=== PATIENT | female | born 1955 | race Caucasian/White ===

== ENCOUNTER 2019-09-19 09:26 | Outpatient (CLI) | payer OTHER, SELFPAY ==
--- NOTE | ~2019-09-19 | MM_ITS ---
EXAMINATION: MM screening [facility] BI w yudi HISTORY: Screening TECHNIQUE: Craniocaudal and mediolateral oblique 3-D tomosynthesis images were obtained and synthetic 2-D images were generated. CAD analysis was submitted and interpreted. COMPARISON: Comparison to multiple prior studies sequentially, with oldest reviewed study dated 12/17. BREAST PARENCHYMAL COMPOSITION: There are scattered areas of fibroglandular density. FINDINGS: There is no evidence of suspicious mass, calcification, or architectural distortion to sugg est malignancy in either breast. There has been no suspicious interval change. IMPRESSION: 1. No mammographic evidence of malignancy. 2. Recommend routine screening mammography in one year. BI-RADS Category 1: Negative Reviewed, dictated and finalized at location A.
== END 2019-09-19 09:27 | disposition home or self-care (01) ==
LOC: ANHIMG 09:29
PROVIDERS: PCP Internal Medicine; Visit Provider Obstetrics & Gynecology
DX: Z12.31 Encounter for screening mammogram for malignant neoplasm of breast (principal)
CPT/HCPCS: 77063; 77067

== ENCOUNTER 2020-01-02 08:02 | Outpatient (CLI) | payer OTHER, SELFPAY ==
--- NOTE | ~2020-01-02 | NM_ITS ---
EXAMINATION: NM stress w perf spect multi DATE: 01/02/2020 11:04 INDICATION: Chest pain. TECHNIQUE: Rest images were obtained following intravenous administration of 10.8 mCi Tc99m tetrofosm in (Myoview). The patient performed an exercise activity. At peak exercise, 30.67 mCi Tc99m tetrofosm in (Myoview) was administered intravenously, and stress images were obtained. Data was reconstructed into short axis and horizontal and vertical long axis SPECT images. Gated SPECT images were also obta ined. COMPARISON: Myocardial perfusion imaging 10/22/2016 FINDINGS: There is no definite reversible or fixed perfusion abnormality to suggest ischemia or infar ction. There is no segmental wall motion abnormality. Left ventricular ejection fraction measures > 70%. IMPRESSION: 1. No definite ischemia or infarct. 2. Normal left ventricular ejection fraction measuring >70%. Reviewed, dictated and finalized at location A. 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
--- NOTE | 2020-01-02 09:21 | EST_ITS ---
Patient Info Name: Sheela Pedroza Age: 64 years : 1955 Gender: Female Ht: 60 in Wt: 200 lbs BSA: 2.01 m2 Exam Date: 01/02/2020 9:44 AM Exam Location: [facility] Stress Patient Status: Outpatient Admit Date: 01/02/2020 Staff Ordering Physician: aSm Gomez DO Attending Provider: Milly Moya ANP Exercise Technologist: Pio Ortega RDCS, RT Exam Type: CA stress test treadmill w NM Study Info A nuclear stress test was performed. Summary 1. Some chest pressure and squeezing in recovery noted. 2. Negative EKG portion of the stress test. 3. Mildly decreased exercise tolerance for age. 4. Mildly hypertensive blood pressure response to exercise. 5. Please see nuclear medicine report. Protocol: [facility] ECG Details Stage: REST Duration (min): 2 min : 4 sec Speed (mph): 0.0 Grade (%): 0 HR (bpm): 71 SBP (mmHg): 143 DBP (mmHg): 72 METS: --- Stage: REST Duration (min): 10 min : 43 sec Speed (mph): 0.0 Grade (%): 0 HR (bpm): 77 SBP (mmHg): 143 DBP (mmHg): 72 METS: --- Stage: STAGE 1 Duration (min): 1 min : 0 sec Speed (mph): 1.7 Grade (%): 10 HR (bpm): 108 SBP (mmHg): 143 DBP (mmHg): 72 METS: --- Stage: STAGE 1 Duration (min): 2 min : 0 sec Speed (mph): 1.7 Grade (%): 10 HR (bpm): 116 SBP (mmHg): 143 DBP (mmHg): 72 METS: --- Stage: STAGE 1 Duration (min): 3 min : 0 sec Speed (mph): 1.7 Grade (%): 10 HR (bpm): 121 SBP (mmHg): 172 DBP (mmHg): 82 METS: --- Stage: STAGE 2 Duration (min): 1 min : 0 sec Speed (mph): 2.5 Grade (%): 12 HR (bpm): 130 SBP (mmHg): 172 DBP (mmHg): 82 METS: --- Stage: STAGE 2 Duration (min): 2 min : 0 sec Speed (mph): 2.5 Grade (%): 12 HR (bpm): 146 SBP (mmHg): 188 DBP (mmHg): 81 METS: --- Stage: STAGE 2 Duration (min): 2 min : 16 sec Speed (mph): 2.5 Grade (%): 12 HR (bpm): 149 SBP (mmHg): 188 DBP (mmHg): 81 METS: --- Stage: RECOVERY Duration (min): 0 min : 43 sec Speed (mph): 0.0 Grade (%): 0 HR (bpm): 140 SBP (mmHg): 188 DBP (mmHg): 81 METS: --- Stage: RECOVERY Duration (min): 1 min : 43 sec Speed (mph): 0.0 Grade (%): 0 HR (bpm): 116 SBP (mmHg): 188 DBP (mmHg): 81 METS: --- Stage: RECOVERY Duration (min): 2 min : 43 sec Speed (mph): 0.0 Grade (%): 0 HR (bpm): 102 SBP (mmHg): 169 DBP (mmHg): 86 METS: --- Stage: RECOVERY Duration (min): 3 min : 43 sec Speed (mph): 0.0 Grade (%): 0 HR (bpm): 96 SBP (mmHg): 169 DBP (mmHg): 86 METS: --- Stage: RECOVERY Duration (min): 4 min : 43 sec Speed (mph): 0.0 Grade (%): 0 HR (bpm): 91 SBP (mmHg): 146 DBP (mmHg): 89 METS: --- Stage: RECOVERY Duration
== END 2020-01-02 08:03 | disposition home or self-care (01) ==
PROVIDERS: PCP Internal Medicine; Visit Provider Internal Medicine
DX: R07.89 Other chest pain (principal)
CPT/HCPCS: 78452; 93017; A9502

== ENCOUNTER 2021-07-01 08:48 | Outpatient (CLI) | payer MEDICARE, OTHER, SELFPAY ==
--- NOTE | ~2021-07-01 | MM_ITS ---
EXAMINATION: MM screening [facility] BI w yudi HISTORY: Screening mammogram TECHNIQUE: Craniocaudal and mediolateral oblique 3-D tomosynthesis images were obtained and synthetic 2-D images were generated. CAD analysis was submitted and interpreted. COMPARISON: 09/19/2019, 02/28/2018, 10/11/2016 BREAST PARENCHYMAL COMPOSITION: There are scattered areas of fibroglandular density. FINDINGS: There is a stable asymmetry in the left breast on the craniocaudal view, consistent with a benign finding. There is no suspicious mass, calcification, or architectural distortion to suggest ma lignancy in either breast. There has been no suspicious interval change. IMPRESSION: 1. No mammographic evidence of malignancy. 2. Recommend routine screening mammography in one year. BI-RADS Category 2: Benign finding(s). Reviewed, dictated and finalized at location A.
== END 2021-07-01 08:49 | disposition home or self-care (01) ==
LOC: ANHIMG 08:51
PROVIDERS: PCP Internal Medicine; Visit Provider Obstetrics & Gynecology
DX: Z12.31 Encounter for screening mammogram for malignant neoplasm of breast (principal)
CPT/HCPCS: 77063; 77067

== ENCOUNTER 2021-08-19 16:00 | Outpatient (CLI) | payer MEDICARE, OTHER, SELFPAY ==
--- NOTE | ~2021-08-19 | CT_ITS ---
EXAMINATION: CT brain wo con DATE: 08/19/2021 16:26 INDICATION: Daily headaches for 4 months TECHNIQUE: Computed tomography (CT) of the head was performed without intravenous contrast. The mA wa s adjusted according to patient size. Iterative reconstruction technique was employed. Exam dose: 60 5.33 mGy-cm total exam DLP. COMPARISON: None FINDINGS: No intracranial mass lesion or hemorrhage or cerebrovascular accident is detected. No midli ne shift or mass effect. Normal ventricular size. No subdural or epidural hematoma. Bilateral carotid siphon and supraclinoid internal carotid artery calcifications and left prominent v ertebral artery calcification. Prominent mucoperiosteal thickening of the right maxillary sinus. Suggestion of nasal antral window o n the right. Partial bilateral ethmoidectomies Nearly complete opacification of the right sphenoid sinus. The mastoid air cells are normally developed and aerated. No fracture or bone destruction of the cranial vault. IMPRESSION: Status post right nasal antral windows and bilateral ethmoidectomies Prominent mucosal periosteal thickening of the right maxillary sinus and nearly complete opacificatio n of the right sphenoid sinus Normally developed and aerated mastoid air cells Cerebral atherosclerosis; no other significant intracranial abnormality Reviewed, dictated and finalized at Location A. Reviewed, dictated and finalized at location A. IMPRESSION: Status post right nasal antral windows and bilateral ethmoidectomi es Prominent mucosal periosteal thickening of the right maxillary sinus and nearly complete opacification of the right sphenoid sinus Normally developed and aerated mastoid air cells Cerebral atherosclerosis; no other significant intracranial abnormality
== END 2021-08-19 16:01 | disposition home or self-care (01) ==
PROVIDERS: PCP Internal Medicine; Visit Provider Internal Medicine
DX: R51.9 Headache, unspecified (principal); I67.2 Cerebral atherosclerosis
CPT/HCPCS: 70450

== ENCOUNTER 2021-12-23 15:39 | Outpatient (CLI) | payer MEDICARE, OTHER, SELFPAY ==
[2021-12-23 17:23] LABS: Thyroid Stimulating Hormone 0.548 uIU/mL (0.465-4.680)
[2021-12-29 14:45] LABS: Thyroid Stimulating Immunoglob <89 % baseline (<140)
[2021-12-29 22:23] LABS: Triiodothyronine T3 Free 3.3 pg/mL (2.3-4.2)
== END 2021-12-23 15:40 | disposition home or self-care (01) ==
LOC: ANHWCLAB 15:41
PROVIDERS: PCP Internal Medicine; Visit Provider Internal Medicine Endocrinology, Diabetes & Metabolism
DX: Z78.0 Asymptomatic menopausal state (principal); E04.9 Nontoxic goiter, unspecified; E05.90 Thyrotoxicosis, unspecified without thyrotoxic crisis or storm
CPT/HCPCS: 36415; 84439; 84443; 84445; 84481

== ENCOUNTER 2022-01-21 09:35 | Outpatient (CLI) | payer MEDICARE, OTHER, SELFPAY ==
--- NOTE | ~2022-01-21 | DEXA_ITS ---
Bone Density Report Name: ADONAY PADILLA Age: 66 Sex: Female Ethnicity: White Date of : 1955 Indication: postmenopausal; screening for osteoporosis; hysterectomy; Referring Provider: CINTHIA MORA Study: Bone densitometry was performed. Exam Date: January 21, 2022 Accession number: [id number] Bone Density: Region BMD T-score Z-score Classification AP Spine(L1-L4) 0.840 -1.9 0.0 Osteopenia Femoral Neck (Left) 0.607 -2.2 -0.6 Osteopenia Total Hip (Left) 0.811 -1.1 0.2 Osteopenia Femoral Neck (Right) 0.607 -2.2 -0.6 Osteopenia Total Hip (Right) 0.831 -0.9 0.4 Normal Total Hip Mean 0.821 -1.0 0.3 Normal World Health Organization criteria for BMD impression classify patients as: Normal (T-score at or above -1.0), Osteopenia (T-score between -1.0 and -2.5), or Osteoporosis (T-score at or below -2.5). 10-year Fracture Risk(1): Major Osteoporotic Fracture 10% Hip Fracture 1.6% Reported Risk Factors: [place] (), Neck BMD=0.607, BMI=40.0 (1) FRAX(R) Version 3.08. Fracture probability calculated for an untreated patient. Fracture probability may be lower if the patient has received treatment. Clinical Information Provided by Patient: Has used the following medications: Calcium Has the following medical conditions: Hysterectomy Patient maximum height was 60 Menopause Age: 40 No regular weight bearing exercise Drinks caffeinated beverages Onset of menses at age 12 Number of children 2 Impression: The patient has low bone mass, based on the Left Femoral Neck T-score. The patient has an estimated ten-year risk of hip fracture of 1.6% and an estimated ten-year risk of major fracture of 10%, based on the WHO FRAX algorithm. Discussion: BONE DENSITY IS LOW AT ONE OR MORE SKELETAL SITES. This patient's lowest T-score is low at one or more skeletal sites. It meets the World Health Organization's (WHO) criteria for ?low bone mass? (T-score between -1.0 and -2.5). The patient's 10-year risk of fracture as calculated by FRAX is less than the threshold where pharmacological therapy is recommended by the National Osteoporosis Foundation (NOF). However, all treatment decisions require clinical judgment and consideration of individual patient factors, including patient preferences, comorbidities, previous drug use, risk factors not captured in the FRAX model (e.g., frailty, falls, vitamin D deficiency, increased bone turnover, interval significant decline in bone density) and possible under or overestimation of fracture risk by FRAX. The patient should follow a healthful lifestyle (good nutrition with adequate calcium and vitamin D, and appropriate weight-bearing exercise). Follow-Up: Consider repeating this study in 2 to 3 years to reassess this patient's status, or sooner if there i
== END 2022-01-21 09:36 | disposition home or self-care (01) ==
PROVIDERS: PCP Internal Medicine; Visit Provider Internal Medicine Endocrinology, Diabetes & Metabolism
DX: M85.89 Other specified disorders of bone density and structure, multiple sites (principal); N95.1 Menopausal and female climacteric states
CPT/HCPCS: 77080

== ENCOUNTER 2023-04-20 09:48 | Outpatient (CLI) | payer MEDICARE, OTHER, SELFPAY ==
--- NOTE | ~2023-04-20 | MM_ITS ---
EXAMINATION: MM screening [facility] BI w yudi HISTORY: Screening mammogram TECHNIQUE: Craniocaudal and mediolateral oblique 3-D tomosynthesis images were obtained and synthetic 2-D images were generated. CAD analysis was submitted and interpreted. COMPARISON: 07/01/2021, bilateral screening mammogram examinations BREAST PARENCHYMAL COMPOSITION: There are scattered areas of fibroglandular density. FINDINGS: There is no evidence of suspicious mass, calcification, or architectural distortion to sugg est malignancy in either breast. There has been no suspicious interval change. IMPRESSION: 1. No mammographic evidence of malignancy. 2. Recommend routine screening mammography in one year. BI-RADS Category 1: Negative Reviewed, dictated and finalized at location A. 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
== END 2023-04-20 09:49 | disposition home or self-care (01) ==
LOC: ANHIMG 09:50
PROVIDERS: PCP Internal Medicine; Visit Provider Obstetrics & Gynecology
DX: Z12.31 Encounter for screening mammogram for malignant neoplasm of breast (principal)
CPT/HCPCS: 77063; 77067

== ENCOUNTER 2024-06-25 08:26 | Outpatient (CLI) | payer OTHER, SELFPAY ==
--- NOTE | ~2024-06-25 | MM_ITS ---
EXAMINATION: MM screening edgar BI w yudi HISTORY: Screening mammogram TECHNIQUE: Craniocaudal and mediolateral oblique 3-D tomosynthesis images were obtained and synthetic 2-D images were generated. CAD analysis was submitted and interpreted. COMPARISON: 04/20/2023, 07/01/2021, 09/19/2019 BREAST PARENCHYMAL COMPOSITION:Not Dense. The breasts are almost entirely fatty FINDINGS: No suspicious mass, calcification, or architectural distortion are identified in either darrel ast to suggest malignancy. There has been no suspicious interval change. IMPRESSION: No mammographic evidence of malignancy. Recommend routine screening mammography in one year. BI-RADS Category 1: Negative Reviewed, dictated and finalized at location .
--- OUTSIDE RECORDS SUMMARY | 2024-06-25 08:35 | XMS_ITS | Clinical Summary ---
Author Organization [facility] Address [address] [place] [address] Care Team Providers Care Recreation Specialist Name Role Phone Basilio DE SOUZA MD, Jared Ann Unavailable [phone] Antoni Lozada MD Unavailable [phone] Quinn Solo NP Primary Care Provider [phone] Allergies No known active allergies Medications atorvastatin (LIPITOR) 20 mg tabletIndicat ions:hyperlip idemia Take 1 tablet (20 mg total) by mouth nightly 019 Active L. gasseri-B. bifidum-B longum (Naurex) 1.5 billion cell capsuleIndica tions:supplem ent Take 1 tablet by mouth every morning 020 Active diphenhydrAMI NE (BENADRYL) 25 mg capsule Take 1 tablet/capsule (25 mg total) by mouth every 8 (eight) hours as needed for allergies Active calcium phosphate trib/vit D3 (CITRACAL + D3, CALCIUM PHOS, ORAL) 010 Active ibuprofen (ADVIL,MOTRIN ) 800 mg tablet 024 Active amLODIPine (NORVASC) 5 mg tablet Take 1 tablet (5 mg total) by mouth daily 024 Active hydroCHLOROth iazide (HYDRODIURIL) 25 mg tablet Take 1 tablet (25 mg total) by mouth daily 024 Active semaglutide 0.25 mg or 0.5 mg (2 mg/3 mL) pen injector injection Inject 0.25 mg under the skin once a week 024 Active omeprazole (PriLOSEC) 20 mg capsule Take 1 capsule (20 mg total) by mouth daily 90 capsule 3 025 Active FLUoxetine (PROzac) 20 mg capsule TAKE 1 CAPSULE BY MOUTH EVERY DAY 90 capsule 1 025 Active Ozempic 2 mg/dose (8 mg/3 mL) pen injector injection INJECT 2 (TWO) MG SUBCUTANEOUSLY EVERY 7 DAYS 025 Active cyanocobalami n (Vitamin B-12) 1,000 mcg tablet 024 2024 Discontinued(T herapy completed) alpha lipoic acid 200 mg capsule Take by mouth 2024 Discontinued(T herapy completed) losartan (COZAAR) 25 mg tablet Take 1 tablet (25 mg total) by mouth daily 024 2024 Discontinued(A lternate therapy) FLUoxetine (PROzac) 20 mg capsule Take 1 capsule (20 mg total) by mouth daily 90 capsule 1 025 2024 Discontinued Active Problems Problem Noted Date Diagnosed Date Functional heartburn 03/04/2024 Gastroesophageal reflux disease without esophagi tis 03/22/2022 Assessment & Plan (06/16/2024 6:48 PM CDT): Previous work up include EGD from 04/2022 with normal esophagus and biopsies. HRM and pH study that showed normal findings. Possibly has functional heartburn related to visceral hypersensitivity. Tried nortriptyline 10 mg QHS for about 3 weeks had issues with loss of taste and numbness of tongue, also did not feel any relief of her heartburn. Since last visit was switched to fluoxetine with symptoms much better controlled Plan Continue fluoxetine and omeprazole Continue to follow antireflux lifestyle modfications Assessment & Plan (03/23/2023 9:34 PM [employer]IMAL [employer]): Constant throat clearing and globus sensation with or without eating. No weight loss. EGD from 04/2022 showed normal esophagus with normal esophageal biopsies. Since last visit had HRM and pH study that showed findings. Possibly has functional heartburn related to visceral hypersensitivity. Tried nortriptyline 10 mg QHS for about 3 weeks had issues with loss of taste and numbness of tongue, also did not feel any relief of her heartburn Plan Go back to omeprazole 20 mg daily Trial of baclofen 5mg TID to help reduce TLESR and decrease reflux episodes Continue to follow antireflux lifestyle modfications Assessment & Plan (09/14/2022 9:35 AM CDT): Constant throat clearing and acid regurgitation every day. Increase omeprazole to 40 mg twice a day with some relief initially but not anymore. Also has globus sensation with or without eating. No weight loss. EGD from 04/2022 showed normal esophagus with normal esophageal biopsies Plan HRM with 24 hour pH impedance study Continue omeprazole 40 mg daily Trial of nortriptyline 10 mg daily Assessment & Plan (03/22/2022 11:08 AM ANIMAL ATTEND[employer]S [employer] TRA[employer]ERS): Constant throat clearing and acid regurgitation every day, worsening over the past month. Not controlled. No relief with omeprazole 40 mg daily taken on an empty stomach in the morning. Has dysphagia associated with both solids and liquids. No weight loss. Remote EGD prior to gastric bypass surgery in 2011. Will evaluate further with EGD for signs of esophagitis and/or peptic stricture. hold PPI prior to procedure. History of Lenora-en-Y gastric bypass 03/22/2022 Epigastric pain 03/22/2022 Assessment & Plan (03/23/2023 9:30 PM [employer] ATT[employer] TRA[employer]): EGD from 04/2022 showed mild reactive gastropathy, negative H pylori. Since last visit had HRM and pH study that showed normal findings Occasional burning with sour stomach . Not associated with eating or bm Tried nortriptyline 10 mg QHS for about 3 weeks had issues with loss of taste and numbness of tongue, also did not feel any relief of her symptoms Takes omeprazole intermittently with relief Plan I suspect visceral hypersensitivity, possible function heartburn, TCA would be 1st line treatment however patient did not tolerate nor did she feel any relief after 3 weeks Go back to taking omeprazole 20 mg daily since it seems to help her symptoms Trial of baclofen 5 mg TID to help with reducing TLESR and reflux episodes Assessment & Plan (09/14/2022 9:36 AM CDT): EGD from 04/2022 showed mild reactive gastropathy, negative H pylori. Occasional burning but more often has an ache that is constant, takes sriram seltzer. Not associated with eating or bm. No constipation or diarrhea while taking daily stool softener. Plan Stop sriram seltzer Trial of nortriptyline 10 mg QHS for visceral hypersensitivity Assessment & Plan (03/22/2022 11:06 AM ANIMAL ATTEND[employer]S [employer] TRA[employer]ERS): New problem with unknown prognosis started about a month ago. Has remote history of Lenora-en-Y gastric bypass in 2011. We will schedule EGD for evaluation of possible peptic versus anastomotic ulcers. Colon cancer screening 03/22/2022 Assessment & Plan (06/16/2024 6:48 PM CDT): One diminutive tubular adenoma in the descending colon on colonoscopy 04/2022. No family history of colon cancer. We will repeat colonoscopy 04/2029 Assessment & Plan (03/04/2024 6:01 PM [employer] ATT[employer] TRA[employer]ERS): One diminutive tubular adenoma in the descending colon on colonoscopy 04/2022. No family history of colon cancer. We will repeat colonoscopy 04/2029 Assessment & Plan (03/23/2023 9:23 PM ANIMAL ATT[employer]S [employer] TRAINERS): One diminutive tubular adenoma in the descending colon on colonoscopy 04/2022. No family history of colon cancer. We will repeat colonoscopy in 7 years. Assessment & Plan (09/14/2022 8:12 AM CDT): One diminutive tubular adenoma in the descending colon on colonoscopy 04/2022. No family history of colon cancer. We will repeat colonoscopy in 7 years. Assessment & Plan (03/22/2022 11:02 AM [employer]IMAL ATT[employer]S [employer] TRA[employer]ERS): Normal colonoscopy 10 years ago per patient no reported here for review. No family history of colon cancer. We will schedule colonoscopy for screening Esophageal dysphagia 03/22/2022 Assessment & Plan (09/14/2022 9:34 AM CDT): New issue unknown etiology. Feels like lump in throat associated with some pain slowly going down esophagus, happens with or without eating. No weight loss. EGD from 04/2022 showed no endoscopic abnormalities to explain her dysphagia. Esophageal biopsies were normal. Has drainage at night that she spits up throughout the night. No coughing or choking with eating. Has sour taste in mouth associated with burning in stomach occasionally as well. Takes omeprazole 40 mg twice daily, helped initially but not as much as before. Plan We will schedule high-resolution manometry with pH impedance to check for any kind of motility disorder, nonerosive reflux disease and/or functional heartburn Continue omeprazole 40 mg daily Trial of nortriptyline 10 mg q.h.s. Assessment & Plan (03/22/2022 11:09 AM ANIMAL ATT[employer]S [employer] TRA[employer]ERS): New issue unknown prognosis. Feels like lump in throat associated with some pain slowly going down esophagus, happens with both liquids and solids. No weight loss. Suspect reflux esophagitis vs peptic stricture vs possible motility disorders vs pseudo achalasia. Schedule EGD. 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 IOP 17 on cosopt BID OS, okay to trial off cosopt now that steroid taper is complete. Assessment & Plan (07/07/2021 11:33 AM CDT): S/p CEIOL/KDB OS 03/09/21 - mild reduction in vision secondary to postop CME, first noted at POM1 - CME now resolved - IOP 20 on cosopt BID OS Needs slow taper. Pt to continue PF/ketorolac 3-4x per day x 1 week, then taper to BID OS x 2 weeks, then qday OS x 2 weeks. CPM cosopt BID OS. Can consider trialing off cosopt if IOP acceptable at next visit. Pt to return to clinic with any new or worsening vision changes, ocular pain, flashes/floaters/curtain in vision. RTC 6 weeks for IOP/anterior seg check/mac OCT OS. Assessment & Plan (05/21/2021 3:48 PM CDT): POM2.5 CEIOL/KDB OS 03/09/21. CME first noted at POM1 on PF/NSAID QID since then Also on cosopt BID OS CME and vision significantly improved today on PF/ketorolac QID. Will keep at this level for now and would recommend slow taper off drops once CME resolved Return to Dr. Hughes 6 weeks Return retina PRN Assessment & Plan (05/12/2021 9:25 AM CDT): POM2 CEIOL/KDB OS 03/09/21 - mild reduction in vision secondary to postop CME, first noted at POM1 - no improvement in CME today on PF/ketorolac x 1 month - IOP 19 on cosopt BID OS Pt educated, continue PF QID and ketorolac QID OS. Continue cosopt BID OS. Considering no improvement in CME after 1 month on gtts, recommend referral to retina. Pt to return to clinic with any new or worsening vision changes, ocular pain, flashes/floaters/curtain in vision. RTC next avail retina for DFE/mac OCT OS. Assessment & Plan (04/28/2021 11:46 AM CDT): POM1.5 CEIOL/KDB 03/09/21 - reduction in vision secondary to postop CME - slight improvement in vision today however IRF about the same on OCT - IOP 16 on cosopt BID OS Pt educated, continue PF and ketorolac QID OS. Continue cosopt BID OS. Pt to return to clinic with any new or worsening vision changes, ocular pain, flashes/floaters/curtain in vision. Assessment & Plan (04/13/2021 9:25 AM ANIMAL ATTEND[employer]S [employer] TRAINERS): POM1 CEIOL/KDB 03/09/21 - reduction in vision secondary to postop CME - IOP 20 on cosopt BID OS Pt educated, Rx PF QID and ketorolac QID OS. Continue cosopt BID OS. RTC 2 weeks for mac OCT/IOP/possible DFE. Pt to return to clinic with any new or worsening vision changes, ocular pain, flashes/floaters/curtain in vision. 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 Per Dr. Lozada notes, IOP acceptable off drops if <22. Okay to trial discontinuing cosopt now that steroid taper is complete. Initially planned for IOP/HVF with Dr. Lozada 6 months following surgery, however complicated by treatment course for postop CME. RTC next avail IOP/HVF 24-[address] Lozada. 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 Assessment & Plan (03/20/2019 10:21 AM ANIMAL ATT[employer] TRA[employer]ERS): IOP borderline OU. Angle unchanged on gonio today. PIs patent. CPM with latanoprost qhs OU. Keep f/u with AB in 6 months as scheduled. Pseudophakia of both eyes 09/13/2017 Assessment & Plan (08/18/2021 1:30 PM CDT): Updated SRx given today. Assessment & Plan (03/16/2021 8:36 AM ANIMAL ATTEND[employer]S [employer] TRAINERS): POW1 EXTRACTION CATARACT - PHACOEMULSIFICATION AND LENS IMPLANT - left eye - Left and TRABECULOTOMY WITH KAHOOK DUAL BLADE - left eye - Left 03/09/2021 - Healing well - IOP 25 today D/c vigamox. Taper PF 3-2-1. D/c shield at night. Start cosopt BID OS only until POM1. If IOP improved will likely d/c cosopt and recheck IOP off gtts. Goal IOP <22. Pt to return to clinic with any new or worsening vision changes, ocular pain, flashes/floaters/curtain in vision. Assessment & Plan (03/20/2019 10:22 AM ANIMAL ATTEND[employer]S [employer] TRAINERS): Slight decline in vision OD. Likely approaching visual significance. Keep f/u with AB in 6 mos. Consider CE/IOL if vision declines. Dry eye 09/13/2017 Abnormal findings on diagnostic imaging of breas t 12/19/2013 Disorder of breast 12/10/2013 Morbid obesity 11/09/2011 Resolved Problems Problem Noted Date Diagnosed Date Resolved Date Nuclear sclerotic cataract of right eye 11/05/2020 03/16/2021 Overview (11/05/2020): Added automatically from request for surgery [id number] Encounters Date Type Department Care Team Description 06/12/2024 9:45 AM CDT Office Visit [facility] at [address] [place] [address] Chilo Byers MD Functional heartburn (Primary Dx); Gastroesophageal reflux disease without esophagitis; Gastroesophageal reflux disease, unspecified whether esophagitis present; History of Lenora-en-Y gastric bypass; Colon cancer screening from Last 3 Months Immunizations Immunization Administration Dates Next Due Influenza, Quadrivalent, Cyndy l Culture-based MDCK, Preservative Free, Antibiotic Free, Intramuscular 11/26/2019 Influenza, Quadrivalent, Hig h Dose, Preservative Free, Intrr 10/29/2020 Influenza, Quadrivalent, Split, Intramuscular Influenza, Split 11/15/2017 Influenza, Trivalent, High D ose, Split, Preservative Free, Intramuscular 11/13/2018 ZOSTER LIVE 03/17/2018,12/27/2017 Surgical History Surgery Date Site/Laterality Comments CHOLECYSTECTOMY 02/14/1993 - 02/13/1994 SINUS SURGERY 1989, 12/2020 BACK SURGERY 02/14/2009 - 02/13/2010 lower back CARPAL TUNNEL RELEASE 02/14/1998 - 02/13/1999 Bilateral HYSTERECTOMY 02/15/1992 - 02/13/1993 CATARACT EXTRACTION 11/14/2020 - 12/14/2020 Right cataract and trab COLONOSCOPY 02/14/2010 - 02/13/2011 CATARACT EXTRACTION 02/14/2021 - 02/13/2022 Left BARIATRIC SURGERY BIOPSY 02/15/2012 - 02/13/2013 Medical History Medical History Date Comments Glaucoma Nuclear age-related cataract, both eyes 09/14/19 18 Tinnitus Sinusitis Recurrent sinus infections Ear pain Nasal congestion Snoring Allergic rhinitis GERD (gastroesophageal reflux disease) Covid-19 02/2020 not hospitalized Hyperlipidemia Anxiety Obesity Tooth missing top right in the back Sleep apnea No CPAP Ear problems Depression Gastric reflux Family History Medical History Relation Name Comments Heart disease Brother Heart disease Father Agustin Mclean Heart failure Father Agustin Mclean Heart disease Maternal Grandfather Cancer Mother Joceline Mclean Ovarian cancer Mother Joceline Mclean Ovarian ca - (Added by TW Conv) Uterine cancer Mother Joceline Mclean Family histo ry of malignant neoplasm of uterus - (Added by TW Conv) Anesthesia problems Neg Hx Relation Name Status Comments Brother Father Agustin Mclean Maternal Grandfather Mother Joceline Mclean Social History Tobacco Use Types Packs/Day Years Used Date Smoking Tobacco: Former Cigarettes 1 17 0 02/15/1972 - 02/14/1989 Smokeless Tobacco: Never Tobacco Cessation:Counseling Given: Not Answered Alcohol Use Standard Drinks/Week Comments Not Currently 0 (1 standard drink = 0.6 oz pur e alcohol) AUDIT-C Answer Date Recorded Q1: How often do you have a drink containing alcohol? Never 06/12/2024 Q2: How many drinks containi ng alcohol do you have on a typical day when you are drinking? Patient does not drink Q3: How often do you have si x or more drinks on one occasion? Never 06/12/2024 Personal Safety Answer Date Recorded Have you ever been in or are you currently in a harmful physical or emotional relationship or is someone making you feel afraid or unsafe? Denies 05/12/2022 Comments No Sex and Gender Information Value Date Recorded Sex Assigned at Not on file Legal Sex Female 7:50 PM [employer] Gender Identity Female 11/01/2020 10:05 AM CDT Sexual Orientation Not on file Obstetrics History Last Filed Vital Signs Vital Sign Reading Time Taken Comments Blood Pressure 110/74 06/12/2024 9:46 AM CDT Pulse 82 06/12/2024 9:46 AM CDT Temperature 36.8 C (98.3 F) 05/04/2023 2:10 PM CDT Respiratory Rate 20 10/20/2022 6:22 AM CDT Oxygen Saturation 98% 06/12/2024 9:46 AM CDT Inhaled Oxygen Concentration - - Weight 87.6 kg (193 lb 1.6 oz) 06/12/2024 9:46 A M CDT Height 152.4 cm (5') 06/12/2024 9:46 AM CDT Body Mass Index 37.71 06/12/2024 9:46 AM CDT Plan of Treatment Health Maintenance Due Date Last Done Comments Albumin Creatinine Ratio, Urine 1955 Depression Screening 1955 Hemoglobin A1C 1955 Hepatitis C Screening 1955 Osteoporosis Screening-Bone Density Scan 1955 eGFR 1955 Foot Exam 1955 DTaP/Tdap/Td Vaccine (1 - Tdap) 10/21/1966 Hepatitis B Screening 10/21/1973 Pneumococcal vaccine 65+ (1 of 2 - PCV) 10/21/1974 Breast Cancer Screening-Mammogram 12/19/2014 014 Zoster Vaccine (2 of 3) 05/12/2018 03/17/2018, 12/27 Well Visit 65+ 10/21/2020 Fall Risk Assessment 05/13/2023 05/12/2022 Covid-19 Vaccine (4 - 2023-2 5 season) 2023 01/19/2021, 05/25/2020, 04/29/2020 Influenza Vaccine (Season Ended) 2024 10/29/2020, 11/26/2019, 11/13/2018, Additional history exists Dilated Eye Exam 01/16/2025 01/17/2024, , 07/07/2021, Additional history exists Lipid Panel 01/22/2025 01/23/2024 Colon Cancer Screening-Colonoscopy 05/12/2032 05/12/2022 Colon Cancer Screening-CT Colonography Discontinued 05/12/2022 Colon Cancer Screening-DNA Stool Discontinued 05/13/19 Colon Cancer Screening-FIT Discontinued 05/12/2022 Colon Cancer Screening-Sigmoidoscopy Discontinued 05/12/2022 Medical Devices Implanted 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 Device Identifier Shelf Expiration Date Model / Serial / Lot [employer] [id number] - [id number] - [id number] Implanted:Qty: 1 on 11/17/2020 by Antoni Lozada MD at [facility] Right: Lens [employer] [id number] 06/14/2023 [id number] / [id number] / [id number] [employer] [id number] - [id number] - [id number] Implanted:Qty: 1 on 03/09/2021 by Antoni Lozada MD at [facility] Left: Eye [employer] 09/14/2023 [id number] / [id number] / Procedures Procedure Name Priority Date/Time Associated Diagnosis Comments COLONOSCOPY 05/12/2022 9:04 AM CDT SCREENING MAMMOGRAM W MJ Routine 12/19/2013 3:10 PM [employer] from Last 3 Months or Most Recently Relevant to Health Maintenance Results * COLONOSCOPY (05/12/2022 9:04 AM CDT) Anatomical Region Laterality Modality Other Narrative Procedure Note Chilo Byers MD - 05/12/2022 9:04 AM CDT [facility] Patient Name: Sheela Pedroza Procedure Date: 05/12/2022 9:04 AM Date of : 1955 Admit Type: Outpatient Age: 66 Gender: Female Attending MD: Chilo Byers M.D. 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 normal colonoscopy 10 years ago. no family hx ofcolon cancer Procedure: Colonoscopy Indications: Screening for colorectal malignant neoplasm, Last colonoscopy: 2010 Referring MD: Sam Gomez MD Providers: Chilo Byers M.D. Impression: - Hemorrhoids found on perianal exam. - One 4 mm polyp in the descending colon, removedwith a cold snare. Resected and retrieved. - External and internal hemorrhoids. - Diverticulosis in the sigmoid colon. Recommendation: - Patient has a contact number available for emergencies. The signs and symptoms of potential delayed complications were discussed with thepatient. Return to normal activities tomorrow. Written discharge instructions were provided to thepatient. - Discharge patient to home (with escort). - Resume previous diet. - Continue present medications. - Await pathology results. - Repeat colonoscopy in 7-10 years for surveillance based on pathology results. - Return to GI clinic as previously scheduled. Medicines: Monitored Anesthesia Care Complications: No immediate complications. Estimated Blood Loss: Estimated blood loss was minimal. Procedure: Pre-Anesthesia Assessment: - Prior to the procedure, a History and Physicalwas performed, and patient medications and allergieswere reviewed. The patient is competent. The risks and benefits of the procedure and the sedation optionsand risks were discussed with the patient. Allquestions were answered and informed consent was obtained. Patient identification and proposed procedure were verified by the physician, the nurse and the betting agency counter clerk in the endoscopy suite. Mental Status Examination: normal. Prophylactic Antibiotics: The patient does not require prophylactic antibiotics. Prior Anticoagulants: The patient has taken no anticoagulant or antiplatelet agents. ASA Grade Assessment: III - A patient with severe systemic disease. After reviewing the risks and benefits,the patient was deemed in satisfactory condition to undergo the procedure. The anesthesia plan was touse monitored anesthesia care (MAC). Immediately priorto administration of medications, the patient was re-assessed for adequacy to receive sedatives. The heart rate, respiratory rate, oxygen saturations, blood pressure, adequacy of pulmonary ventilation,and response to care were monitored throughout the procedure. The physical status of the patient was re-assessed after the procedure. The benefits, risks and alternatives of theprocedure and sedation were discussed and informed consentwas obtained. All questions were answered. Please referto the signed informed consent document in the medical record. The bowel preparation used was Miralax via split dose instruction. The bowel preparation usedwas bisacodyl tablets via split dose instruction. The scope was passed under direct vision. TheColonoscope [id number] was introduced through the anus and advanced to the the cecum, identified by appendiceal orifice and ileocecal valve. The colonoscopy was performed without difficulty. The patient tolerated the procedure well. The qualityof the bowel preparation was good. Bowel prep was administered using a split dose. Findings: Hemorrhoids were found on perianal exam. A 4 mm polyp was found in the descending colon. The polyp was flat.The polyp was removed with a cold snare. Resection and retrieval were complete. External and internal hemorrhoids were found during retroflexion. The hemorrhoids were large. A few small and large-mouthed diverticula were found in the sigmoid colon. Chilo Byers M.D. 05/12/2022 11:24:56 AM Number of Addenda: 0 Note Initiated On: 05/12/2022 9:04 AM Procedure Code(s): --- Professional --- 24569, Colonoscopy, flexible; with removal of tumor(s), polyp(s), or other lesion(s) by snare technique --- Technical --- 59684, Colonoscopy, flexible; with removal of tumor(s), polyp(s), or other lesion(s) by snare technique Diagnosis Code(s): --- Professional --- Z12.11, Encounter for screening for malignant neoplasm of colon K64.8, Other hemorrhoids D12.4, Benign neoplasm of descending colon K57.30, Diverticulosis of large intestine without perforation orabscess without bleeding --- Technical --- Z12.11, Encounter for screening for malignant neoplasm of colon K64.8, Other hemorrhoids D12.4, Benign neoplasm of descending colon K57.30, Diverticulosis of large intestine without perforation orabscess without bleeding CPT copyright 2020 [employer]. All rights reserved. The codes documented in this report are preliminary and upon medical billing coder reviewmay be revised to meet current compliance requirements. Recognized by the [employer] for promoting quality in endoscopy us Chilo Byers MD ENDOSCOPY PROCEDURES Final Resul t * Screening Mammogram W Mj (12/19/2013 3:10 PM [employer]) Anatomical Region Laterality Modality Breast N/A Mammography 12/19/2013 3:10 PM [employer]IMAL ATTENDANTS [employer] TRAINERS Narrative 12/19/2013 5:29 PM [employer] VARGHESE PASCUAL M.D. FENG BARRIGA, FINAL REPORT The radiology attending physician has personally reviewed this study, and has reviewed and/or edited this written report and agrees with it. ACC# Date Time Exam [id number] Dec 19, 2013 15:10:00 [facility] [id number] Diag Mammogram Unilateral L Technologist(s): Terri Campo; ; [id number] Dec 19, 2013 15:10:00 [facility] [id number] Unilateral Tomosynthesis L Technologist(s): Terri Campo; ; EXAMINATION: LEFT UNILATERAL FULL FIELD DIGITAL DIAGNOSTIC MAMMOGRAM AND DIGITAL LEFT BREAST TOMOSYNTHESIS HISTORY: 58-year-old woman with abnormal outside facility mammogram. TECHNIQUE: Additional views of the LEFT breast were obtained utilizing full field digital mammography. Digital breast tomosynthesis was also performed and reviewed as a part of this examination. COMPARISON: Outside facility mammogram dated 12/03/2013 BREAST PARENCHYMAL COMPOSITION: There are scattered areas of fibroglandular density. FINDINGS: Today's additional views confirm grouped, fine linear microcalcifications in the middle to posterior upper outer LEFT breast. IMPRESSION: Grouped, fine linear microcalcifications in the middle to posterior upper outer LEFT breast are of moderate suspicion for malignancy and amenable to stereotactic guided core needle biopsy for tissue sampling. The above findings and recommendations were delivered in writing to Dr. Kenisha Manrique, who is seeing the patient in breast surgery clinic today. The patient has been scheduled to return to the [facility] for an stereotactic -guided core needle biopsy of the LEFT breast on 12/27/2013 at 0845. OVERALL FINAL ASSESSMENT: BI-RADS Category 4B: Suspicious abnormality. Moderate suspicion for malignancy. Requested By: Dictated By: FENG BARRIGA, on Dec 19 2013 5:05P This document has been electronically signed by: VARGHESE PASCUAL M.D. on Dec 19 2013 5:29P Procedure Note Provider, MD Ashlie - 06/16/2016 VARGHESE PASCUAL M.D. FENG BARRIGA, FINAL REPORT The radiology attending physician has personally reviewed this study, and has reviewed and/or edited this written report and agrees with it. ACC# Date Time Exam [id number] Dec 19, 2013 15:10:00 [facility] [id number] Diag Mammogram Unilateral L Technologist(s): Terri Campo; ; [id number] Dec 19, 2013 15:10:00 [facility] [id number] Unilateral Tomosynthesis L Technologist(s): Terri Campo; ; EXAMINATION: LEFT UNILATERAL FULL FIELD DIGITAL DIAGNOSTIC MAMMOGRAM AND DIGITAL LEFT BREAST TOMOSYNTHESIS HISTORY: 58-year-old woman with abnormal outside facility mammogram. TECHNIQUE: Additional views of the LEFT breast were obtained utilizing full field digital mammography. Digital breast tomosynthesis was also performed and reviewed as a part of this examination. COMPARISON: Outside facility mammogram dated 12/03/2013 BREAST PARENCHYMAL COMPOSITION: There are scattered areas of fibroglandular density. FINDINGS: Today's additional views confirm grouped, fine linear microcalcifications in the middle to posterior upper outer LEFT breast. IMPRESSION: Grouped, fine linear microcalcifications in the middle to posterior upper outer LEFT breast are of moderate suspicion for malignancy and amenable to stereotactic guided core needle biopsy for tissue sampling. The above findings and recommendations were delivered in writing to Dr. Kenisha Manrique, who is seeing the patient in breast surgery clinic today. The patient has been scheduled to return to the [facility] for an stereotactic -guided core needle biopsy of the LEFT breast on 12/27/2013 at 0845. OVERALL FINAL ASSESSMENT: BI-RADS Category 4B: Suspicious abnormality. Moderate suspicion for malignancy. Requested By: Dictated By: FENG BARRIGA on Dec 19 2013 5:05P This document has been electronically signed by: VARGHESE PASCUAL M.D. on Dec 19 2013 5:29P Historical Provider MD SUGGS MAMMO PROCEDURES Sanam l Result from Last 3 Months or Most Recently Relevant to Health Maintenance Insurance [facility] MEDICARE RAILROAD [facility] [place] [address] [facility] Advance Directives For more information, please contact: [phone] * Full Code (Latest Code Status on File) Date Activated Date Inactivated Comments 05/12/2022 9:06 AM 05/12/2022 3:47 PM * Full Code Date Activated Date Inactivated Comments 05/12/2022 9:06 AM 05/12/2022 9:06 AM Care Teams Recreation Specialist Relationship Specialty Start Date End Date Quinn Solo CAPTAIN ASSISTANT [address] [place] [address] PCP - General Nurse Practitioner 02/28/24 Jared Richmond II, MD [address] [place] [address] Consulting Physician Otolaryngology 12/24/20 Antoni Lozada MD [address] [place] [address] Consulting Physician Ophthalmology 01/01/21
--- OUTSIDE RECORDS SUMMARY | 2024-06-25 08:35 | XMS_ITS | Referral Summary ---
Author Organization [facility] Address [address] [place] [address] Care Team Providers Care Rehabilitation Supervisor Name Role Phone Basilio DE SOUZA MD, Jared Ann Unavailable [phone] Antoni Lozada MD Unavailable [phone] Quinn Solo NP Primary Care Provider [phone] Encounters Date Type Department Care Team Description 06/12/2024 9:45 AM CDT Office Visit [facility] G[facility]ology at [address] [place] [address] Chilo Byers MD Functional heartburn (Primary Dx); Gastroesophageal reflux disease without esophagitis; Gastroesophageal reflux disease, unspecified whether esophagitis present; History of Lenora-en-Y gastric bypass; Colon cancer screening from Last 3 Months Allergies No known active allergies Medications atorvastatin (LIPITOR) 20 mg tabletIndicat ions:hyperlip idemia Take 1 tablet (20 mg total) by mouth nightly 019 Active L. gasseri-B. bifidum-B longum ([employer]) 1.5 billion cell capsuleIndica tions:supplem ent Take [...] modfications Assessment & Plan (03/23/2023 9:34 PM BISTRO ATTENDANT): Constant throat clearing and globus sensation with [...] daily Assessment & Plan (03/22/2022 11:08 AM BISTRO ATTENDANT): Constant throat clearing and acid regurgitation every [...] 03/22/2022 Assessment & Plan (03/23/2023 9:30 PM BISTRO ATTENDANT): EGD from 04/2022 showed mild reactive gastropathy, [...] hypersensitivity Assessment & Plan (03/22/2022 11:06 AM BISTRO ATTENDANT): New problem with unknown prognosis started about [...] 04/2029 Assessment & Plan (03/04/2024 6:01 PM BISTRO ATTENDANT): One diminutive tubular adenoma in the descending colon on colonoscopy 04/2022. No family history of colon cancer. We will repeat colonoscopy 04/2029 Assessment & Plan (03/23/2023 9:23 PM BISTRO ATTENDANT): One diminutive tubular adenoma in the descending colon on colonoscopy 04/2022. No family history of colon cancer. We will repeat colonoscopy in 7 years. Assessment & Plan (09/14/2022 8:12 AM CDT): One diminutive tubular adenoma in the descending colon on colonoscopy 04/2022. No family history of colon cancer. We will repeat colonoscopy in 7 years. Assessment & Plan (03/22/2022 11:02 AM BISTRO ATTENDANT): Normal colonoscopy 10 years ago per patient [...] q.h.s. Assessment & Plan (03/22/2022 11:09 AM BISTRO ATTENDANT): New issue unknown prognosis. Feels like lump [...] vision. Assessment & Plan (04/13/2021 9:25 AM BISTRO ATTENDANT): POM1 CEIOL/KDB 03/09/21 - reduction in vision [...] 08/16 Assessment & Plan (03/16/2021 8:32 AM BISTRO ATTENDANT): IOP 25 OS postop today, start cosopt BID OS only. Assessment & Plan (03/20/2019 10:21 AM BISTRO ATTENDANT): IOP borderline OU. Angle unchanged on gonio today. PIs patent. CPM with latanoprost qhs OU. Keep f/u with AB in 6 months as scheduled. Pseudophakia of both eyes 09/13/2017 Assessment & Plan (08/18/2021 1:30 PM CDT): Updated SRx given today. Assessment & Plan (03/16/2021 8:36 AM BISTRO ATTENDANT): POW1 EXTRACTION CATARACT - PHACOEMULSIFICATION AND LENS [...] vision. Assessment & Plan (03/20/2019 10:22 AM BISTRO ATTENDANT): Slight decline in vision OD. Likely approaching [...] (11/05/2020): Added automatically from request for surgery [id number] Immunizations Immunization Administration Dates Next Due Influenza, Quadrivalent, Cyndy l Culture-based MDCK, Preservative Free, Antibiotic Free, Intramuscular 11/26/2019 Influenza, Quadrivalent, Hig h Dose, Preservative Free, Intrr 10/29/2020 Influenza, Quadrivalent, Split, Intramuscular Influenza, Split 11/15/2017 Influenza, Trivalent, High D ose, Split, Preservative Free, Intramuscular 11/13/2018 [facility] 03/17/2018,12/27/2017 Social History Tobacco Use Types Packs/Day Years [...] on file Legal Sex Female 7:50 PM BISTRO ATTENDANT Gender Identity Female 11/01/2020 10:05 AM CDT Sexual Orientation Not on file Last Filed Vital Signs Vital Sign Reading [...] 06/12/2024 9:46 AM CDT Plan of Treatment Not on file Medical Devices Implanted Type Area Bending Machine Set Up Operator Device Identifier Shelf Expiration Date Model / Serial / Lot [employer] [id number] - [id number] - [id number] Implanted:Qty: 1 on 11/17/2020 by Antoni Lozada MD at [facility] Lens Right: Lens [employer] [id number] 06/14/2023 [id number] / [id number] / [id number] [employer] [id number] - [id number] - [id number] Implanted:Qty: 1 on 03/09/2021 by Antoni Lozada MD at [facility] Lens Left: Eye [employer] 09/14/2023 [id number] / [id number] / Procedures Procedure Name Priority Date/Time Associated Diagnosis Comments COLONOSCOPY 05/12/2022 9:04 AM CDT SCREENING MAMMOGRAM W MJ Routine 12/19/2013 3:10 PM BISTRO ATTENDANT from Last 3 Months or Most Recently Relevant to Health Maintenance Results * COLONOSCOPY (05/12/2022 9:04 AM CDT) Anatomical Region Laterality Modality Other Narrative Procedure Note Chilo Byers MD - 05/12/2022 9:04 AM CDT [facility] Patient Name: Sheela Pedroza Procedure Date: 05/12/2022 9:04 AM Date of : 1955 Admit Type: Outpatient Age: 66 Gender: Female Attending MD: Chilo Byers M.D. Room: [facility] ENDOSCOPY ROOM 2 Note Status: Finalized Patient [...] by the physician, the nurse and the collar folder operator in the endoscopy suite. Mental Status Examination: [...] scope was passed under direct vision. TheColonoscope [id number] was introduced through the anus and advanced [...] 9:04 AM Procedure Code(s): --- Professional --- 46058, Colonoscopy, flexible; with removal of tumor(s), polyp(s), or other lesion(s) by snare technique --- Technical --- 38355, Colonoscopy, flexible; with removal of tumor(s), polyp(s), [...] perforation orabscess without bleeding CPT copyright 2020 [employer]. All rights reserved. The codes documented in this report are preliminary and upon certified medical records coder reviewmay be revised to meet current compliance requirements. Recognized by the [employer] for promoting quality in endoscopy us Chilo Byers MD ENDOSCOPY PROCEDURES Final Resul t * Screening Mammogram W Mj (12/19/2013 3:10 PM BISTRO ATTENDANT) Anatomical Region Laterality Modality Breast N/A Mammography 12/19/2013 3:10 PM BISTRO ATTENDANT Narrative 12/19/2013 5:29 PM BISTRO ATTENDANT VARGHESE PASCUAL M.D. FENG BARRIGA, FINAL REPORT The radiology attending physician has personally reviewed this study, and has reviewed and/or edited this written report and agrees with it. ACC# Date Time Exam [id number] Dec 19, 2013 15:10:00 [facility] [id number] Diag Mammogram Unilateral L Technologist(s): Terri Campo; ; [id number] Dec 19, 2013 15:10:00 [facility] [id number] Unilateral Tomosynthesis L Technologist(s): Terri Campo; ; [...] has been scheduled to return to the [facility] for an stereotactic -guided core needle biopsy [...] agrees with it. ACC# Date Time Exam [id number] Dec 19, 2013 15:10:00 [facility] [id number] Diag Mammogram Unilateral L Technologist(s): Terri Campo; ; [id number] Dec 19, 2013 15:10:00 [facility] [id number] Unilateral Tomosynthesis L Technologist(s): Terri Campo; ; [...] has been scheduled to return to the [facility] for an stereotactic -guided core needle biopsy of the LEFT breast on 12/27/2013 at 0845. OVERALL FINAL ASSESSMENT: BI-RADS Category 4B: Suspicious abnormality. Moderate suspicion for malignancy. Requested By: Dictated By: FENG BARRIGA on Dec 19 2013 5:05P This document has been electronically signed by: VARGHESE PASCUAL M.D. on Dec 19 2013 5:29P us Historical Provider MD SUGGS MAMMO PROCEDURES Asnam l Result from Last 3 Months or Most Recently Relevant to Health Maintenance Insurance [facility] MEDICARE [address] [facility] [place] [id number] Advance Directives For more information, please contact: [phone] * Full Code (Latest Code Status on File) Date Activated Date Inactivated Comments 05/12/2022 9:06 AM 05/12/2022 3:47 PM * Full Code Date Activated Date Inactivated Comments 05/12/2022 9:06 AM 05/12/2022 9:06 AM Care Teams Rehabilitation Supervisor Relationship Specialty Start Date End Date Quinn Solo NP [address] [id number] PCP - General Nurse Practitioner 02/28/24 Jared Richmond II, MD [address] [place] [address] Consulting Physician Otolaryngology 12/24/20 Antoni Lozada MD [address] [place] [address] Consulting Physician Ophthalmology 01/01/21
== END 2024-06-25 08:27 | disposition home or self-care (01) ==
LOC: ANHIMG 08:29
PROVIDERS: PCP Internal Medicine; Visit Provider Nurse Practitioner
DX: Z12.31 Encounter for screening mammogram for malignant neoplasm of breast (principal)
CPT/HCPCS: 77063; 77067